=== PATIENT | male | born 1965 | race Caucasian/White ===

== ENCOUNTER 2020-09-18 18:03 | Emergency (ER) | payer OTHER | END 2020-09-18 19:05 | LOC: ED 18:03 | DX: Z02.89 Encounter for other administrative examinations (principal) ==

== ENCOUNTER 2020-09-18 18:03 | Emergency (ER) | payer SELFPAY ==
[~2020-09-18] VITALS: Ht 182.9 cm; Wt 95.3 kg
[2020-09-18 18:09] VITALS: Ht 182.9 cm; Wt 95.3 kg
[2020-09-18 18:26] LABS: BASOPHIL % 1.3 % (0.2-1.5); PLATELET COUNT 191 x10^3mcL (152-348)
[2020-09-18 18:29] LABS: RED CELL DISTRIBUTION WIDTH 15.1 % (12.1-16.2)
[2020-09-18 18:59] LABS: CARBON DIOXIDE 25.1 mmol/L (21-32); CHLORIDE SERUM 105 mmol/L (98-107); CREATININE SERUM 1.1 mg/dL (0.7-1.3); GFR1 > 60 mL/min; GLUCOSE SERUM 120 mg/dL (74-106); POTASSIUM SERUM 3.6 mmol/L (3.5-5.1); SODIUM SERUM 139 mmol/L (136-145)
[2020-09-18 19:04] LABS: ALBUMIN 3.6 g/dL (3.4-5.0); ALKALINE PHOSPHATASE 98 U/L (46-116); ALT/SGPT 35 U/L (16-63); AST/SGOT 13 U/L (15-37); BILIRUBIN TOTAL 0.32 mg/dL (0.20-1.00); TOTAL PROTEIN, SERUM 7.6 g/dL (6.4-8.2)
[2020-09-18 19:05] VITALS: BP 115/75
== END 2020-09-18 19:05 ==
LOC: ED 18:03
PROVIDERS: Emergency Medicine
DX: R07.89 Other chest pain (principal); I10 Essential (primary) hypertension; F17.210 Nicotine dependence, cigarettes, uncomplicated